=== PATIENT | male | born 1970 | race Caucasian/White ===

== ENCOUNTER → 2020-03-27 | Outpatient (CLI) | payer OTHER ==
[2020-03-27 19:20] LABS: African American GFR (CKD) 119.9 (60.0-200.0); Albumin 4.3 g/dL (3.80-4.90); Albumin/Globulin Ratio 2.05 (1.60-3.17); Anion Gap 8.4 mmol/L (4.00-12.00); Bilirubin, Conjugated 0.3 mg/dL (0.20-0.40); Bilirubin,Unconjugated 0.4 mg/dL; Carbon Dioxide 28.6 mmol/L (21.6-31.8); Chol/HDL Ratio 2.94; Globulin 2.1 g/dL (1.6-3.3); Non-African American GFR(CKD) 103.4 (60.0-200.0); Potassium 4.4 mmol/L (3.5-5.5); Total Bilirubin 0.7 mg/dL (0.2-1.2); Total Protein 6.4 g/dL (6.2-8.2)
== END | disposition home or self-care (01) ==
LOC: LABWHC1 12:18
PROVIDERS: ATTEND Internal Medicine
DX: I10 Essential (primary) hypertension (principal); E11.9 Type 2 diabetes mellitus without complications; E78.5 Hyperlipidemia, unspecified; J06.9 Acute upper respiratory infection, unspecified
CPT/HCPCS: 36415; 80051; 80061; 80076; 82565; 82947; 83036; 84520